=== PATIENT | female | born 1945 | race Caucasian/White ===

== ENCOUNTER 2018-02-13 09:30 | Emergency (ER) | payer MEDICARE, BC ==
[~2018-02-13] VITALS: Ht 167.6 cm; Wt 81.5 kg
[~2018-02-13 09:30] MED LIST: ADVAI250I PO; ALBU1AER INH; CALTTAB2 PO; CYMB30CA PO; CYMB60CA PO; MACR100C PO; PYRI200T4 PO; REST0.05 OU; TRAZ50TA78 PO; WELLTAB39 PO; ZITH250T PO
[2018-02-13 09:51] VITALS: BP 120/68; PULSE 72; RESP 18; TEMP 98.4; O2SAT 97
--- NOTE | 2018-02-13 10:28 | PD ---
HPI Chief Complaint: Respiratory Distress Time Seen by Provider: 10:09 Travel History International Travel<30 days: No Contact w/Intl Traveler<30days: No Traveled to known affect area: No History of Present Illness HPI 73-year-old female presents to the emergency room for evaluation of mildly productive cough, nasal congestion, and sore throat for the past 5 days. Patient states she is susceptible to bronchitis and sinus infections which is why she came into the emergency room today. Patient states her mucus is yellow and thick. She reports chills but has not actually taken her temperature. She denies any chronic medical conditions other than chronic back pain and asthma. She has been using her inhaler without significant relief in symptoms. She has not taken anything else [id number]. Sore throat is severe and feels like "swallowing razors." PFSH Past Medical History Hx Anticoagulant Therapy: No Arthritis: Yes Asthma: Yes Anxiety: Yes Depression: Yes Cancer: No Cardiovascular Problems: No Chemotherapy: Yes Cerebrovascular Accident: No Diabetes: No Diminished Hearing: Yes Endocrine: No Genitourinary: No Immune Disorder: Yes (SARACODOSIS) Implanted Vascular Access Dvce: Yes Musculoskeletal: Yes Neurologic: Yes Psychiatric: Yes Reproductive: No Respiratory: Yes (ASTHMA) Immunizations Current: No Seizures: Yes (ONCE DURING SX FOR TOTAL KNEE REPLACEMENT) Menopausal: Yes Past Surgical History Abdominal Surgery: Yes (VANITA) Appendectomy: Yes Cholecystectomy: Yes Gynecologic Surgery: Yes (TUBAL LIGATION) Hysterectomy: No Joint Replacement: Yes (KNEE) Pacemaker: No Other Surgery: Yes (EXCISION BIOPSY LYMPH NODE) Social History Alcohol Use: No Tobacco Use: No Substance Use: No Allergies-Medications (Allergen,Severity, Reaction): Coded Allergies: acetaminophen (Unverified Allergy, Severe, 02/13/18) hydrocodone (Unverified Allergy, Severe, 02/13/18) latex (Unverified Allergy, Severe, 02/13/18) oxycodone (Unverified Allergy, Severe, 02/13/18) penicillin G (Unverified Allergy, Severe, SHOCK, 02/13/18) sulfamethoxazole (Unverified Allergy, Severe, Swelling, 02/13/18) trimethoprim (Unverified Allergy, Severe, Swelling, 02/13/18) tramadol (Unverified Allergy, Intermediate, 02/13/18) ORAL INFLAMMATION AND BREAK-OUT doxycycline (Unverified Allergy, Unknown, 02/13/18) levofloxacin (Unverified Allergy, Unknown, 02/13/18) Reported Meds & Prescriptions Reported Meds & Active Scripts Active Review of Systems Except as stated in HPI: all other systems reviewed are Neg Physical Exam Narrative GENERAL: Well-nourished, well-developed female in no acute distress. Afebrile. Ambulatory. SKIN: Focused skin assessment warm/dry. HEAD: Normocephalic. EYES: No scleral icterus. No injection or drainage. ENT: Mucosa pink and moist. Minimal erythema without edema or exudates. No uvular edema. No uvular, palatal, or tonsillar deviation. Airway patent. Nasal turbinates appear normal without nasal blood, purulent drainage or septal hematoma. NECK: Supple, trachea midline. No JVD or lymphadenopathy. CARDIOVASCULAR: Regular rate and rhythm without murmurs, gallops, or rubs. RESPIRATORY: Breath sounds equal bilaterally. No accessory muscle use. No crackles, rales, wheezes, or rhonchi. Data Data Last Documented VS Vital Signs Date Time Temp Pulse Resp B/P (MAP) Pulse Ox O2 Delivery O2 Flow Rate FiO2 02/13/18 09:51 98.4 72 18 120/68 (85) 97 Orders Orders Chest, Pa & Lat (02/13/18 ) Group A Rapid Strep Screen (02/13/18 10:15) Strep Culture (Group A) (02/13/18 10:20) MDM Medical Decision Making Medical Screen Exam Complete: Yes Emergency Medical Condition: Yes Medical Record Reviewed: Yes Differential Diagnosis Bronchitis, asthma exacerbation, sinusitis, pneumonia Narrative Course 73-year-old female with history of asthma presents to the emergency room for evaluation of nasal congestion, mildly productive cough, and sore throat for the past 5 days. No objective fevers. Patient is afebrile and well-appearing in the emergency room. Vital signs stable. Lung sounds clear and equal bilaterally. She has no increased work of breathing. Coughing minimally. Chest x-ray is negative. Rapid strep is negative. Likely upper respiratory infection but patient will be treated empirically with azithromycin, prednisone , and albuterol. Told to follow-up with a primary care physician or return for worsening symptoms. She understands and agrees to plan. Diagnosis Primary Impression: Upper respiratory infection Qualified Codes: J00 - Acute nasopharyngitis [common cold] Referrals: Primary Care Physician Additional Instructions: Rest and drink plenty of fluids. Take azithromycin and prednisone as directed, until gone. Use albuterol as directed, as needed for shortness of breath or wheezing. Do not use more than directed. Follow-up with a primary care physician. Return to the emergency room for worsening symptoms. Med/Other Pt SpecificInfo: Prescription(s) given Scripts Prednisone (Prednisone) 20 Mg Tab 40 MG PO DAILY, #10 TAB 0 Refills Take 40 mg (2 tablets) daily for 5 days Prov: Temitope Serrato MD 02/13/18 Albuterol 18 GM Inh (Ventolin Hfa 18 GM Inh) 90 Mcg/Act Aer 2 PUFF INH Q6H Y for SHORTNESS OF BREATH, #1 INHALER 0 Refills Prov: Temitope Serrato MD 02/13/18 Azithromycin (Azithromycin) 250 Mg Tab 250 MG PO DIRECTED for Infection, #6 TAB 0 Refills Take 2 tabs (500 mg) on day 1 then 1 tab daily x 4 days. Prov: Temitope Serrato MD 02/13/18 Disposition: 01 DISCHARGE HOME Condition: Stable Shelia Burnette Feb 13, 2018 10:28
--- NOTE | 2018-02-13 11:05 | RADRPT ---
EXAM DATE/TIME: 02/13/2018 10:44 [facility] COMPARISON: No previous studies available for comparison. INDICATIONS : Cough. Short of breath. Congestion. MEDICAL HISTORY : Asthma. SURGICAL HISTORY : None. ENCOUNTER: Initial ACUITY: 4 - 6 days PAIN SCORE: 2/10 LOCATION: Bilateral chest FINDINGS: PA and lateral views of the chest. The lungs are clear. Cardiomediastinal silhouette within normal li mits. No evidence of pleural effusion or pneumothorax. CONCLUSION: No acute cardiopulmonary disease identified. Tanmay Sung MD on February 13, 2018 at 11:02 Board Certified Radiologist. This report was verified electronically.
[2018-02-13] MEDS ORDERED: PRED20 PO (11:10)
[2018-02-13] MEDS ORDERED: VENTAER INH (11:10)
[2018-02-13] MEDS ORDERED: AZIT250T3 PO (11:10)
== END 2018-02-13 11:38 | disposition home or self-care (01) ==
LOC: NEPK 09:30
DX: J00 Acute nasopharyngitis [common cold] (principal)
CPT/HCPCS: 71046; 87081; 87880; 99284